=== PATIENT | female | born 1950 | race Caucasian/White ===

== ENCOUNTER → 2016-05-28 | Outpatient (CLI) | payer OTHER ==
[~2016-05-28] MED LIST: COLACE 100 MG100 MG PO; COZAAR 25 MG TA25 M1 PO; CYCLOBENZAPRINE5 MG PO; ELIQUIS5 MG PO; LEVOTHYROXINE 0.1 MG PO; PACERONE 200 M200 M1 PO; PRAVACHOL40 MG PO; PROBIOTIC1 EAC1; SYMBICORT160 MCG/4. INH; TYLENOL325 MG PO; VENTOLIN HFA 1818 GM INH
[2016-05-28 08:30] LABS: HEMATOCRIT 38.9 % (37.0-47.0); HEMOGLOBIN 12.8 gm/dL (12.0-15.0); MCHC 32.8 g/dL (28.0-37.0); MCV 91.6 fL (80.0-100.0); RBC 4.25 mil/uL (4.20-5.00); RDW 13.7 % (10.5-14.5)
[2016-05-28 08:43] LABS: CALCIUM 8.5 mg/dL (8.5-10.1); CREATININE 1.2 mg/dL (0.6-1.3); POTASSIUM 4.3 mmol/L (3.5-5.1)
[2016-05-28 08:48] LABS: ALBUMIN 3.3 g/dL (3.4-5.0); TOTAL BILIRUBIN 0.3 mg/dL (<0.1-1.0); TOTAL PROTEIN 6.6 g/dL (6.4-8.2)
== END ==
LOC: LABMALL 07:47 → CAT 07:47
PROVIDERS: Internal Medicine Cardiovascular Disease
DX: I48.91 Unspecified atrial fibrillation (principal)

== ENCOUNTER 2016-05-29 06:34 | Observation (INO) | payer OTHER ==
[2016-05-29] VITALS (9 sets, daily range): BP systolic 125–143; BP diastolic 65–80
[~2016-05-29] VITALS: Ht 175.3 cm; Wt 107.2 kg
--- NOTE | ~2016-05-29 | P ---
[facility] [place] [address] PROCEDURE REPORT Name: GRANT MELGAR Room #: REG [facility].#: [id number] Admission: 05/29/16 Attend Phys: Jim Stallings MD Discharge: Date of : 52 Report #: [id number] THIS REPORT FOR: //name// CC: Huey Stallings DATE OF SERVICE: 05/29/2016 PREOPERATIVE DIAGNOSIS: Paroxysmal atrial fibrillation. POSTOPERATIVE DIAGNOSIS: Paroxysmal atrial fibrillation. HISTORY: The patient is a 65-year-old female with history of AFib, who has intolerances to amiodarone therapy and is here for an ablation. ANESTHESIA: The patient underwent general anesthesia with no anesthesia related complications. DESCRIPTION OF PROCEDURE: The patient underwent informed consent. We discussed the details of the procedure including the risks, which include but are not limited to bleeding, vascular damage, cardiac perforation as well as stroke or [place]. She understood these risks and willing to proceed. As such, she was brought to the EP laboratory in a fasting and sedated state, prepped and draped in a sterile fashion. Next, I obtained access to the right femoral vein x 3 placing sheaths using the modified Seldinger technique. In the right femoral vein, I placed an 8-Faroese, 9-Faroese and 7-Faroese short sheath. Under fluoroscopic guidance, I placed a decapolar catheter easily in the coronary sinus and an ice catheter into the right atrium. Intracardiac ultrasound verified that there were 2 left to right pulmonary veins. There was a nice thin interatrial septum. The patient was then systemically heparinized and a transseptal was performed along the inferior anterior aspect of the interatrial septum with an SL1 sheath and [place] needle. Once across the SL1 sheath, I exchanged this sheath for the cryo sheath and then placed the cryoballoon into the left atrium. At baseline, the patient was in sinus rhythm with a sinus cycle length of 1120 milliseconds, WA interval 165 milliseconds, QRS 92 milliseconds, QT interval 500 milliseconds. Next, the left superior pulmonary vein was isolated within 30 seconds of the first freeze. The initial freeze was continued for 4 minutes, a second 2-minute freeze was performed. Next, the left inferior pulmonary vein was isolated in 3 freezes. I had some problems with some higher temps in this vein, but the third freeze had very good temperatures and the vein was isolated. Next, I turned my attention to the right superior pulmonary vein and this isolated in 2 freezes. Then, I re-interrogated the left superior, left inferior veins and these remained isolated and then turned my attention to the right [address] [address] PROCEDURE REPORT Name: GRANT MELGAR CLYDE Room #: REG JAMIA Bell#: [id number] Admission: 05/29/16 Attend Phys: Jim Stallings MD Discharge: Date of : 52 Report #: [id number] inferior pulmonary vein. Entering this vein was somewhat challenging, but eventually, I was able to engage it and 2 freezes were performed for 4 minutes. After these 2 freezes, the vein was isolated. During the freezes of the right-sided veins, phrenic nerve pacing was performed from the decapolar catheter placed in the SVC. As such, all 4 pulmonary veins were isolated. The cryo sheath was pulled to the right atrium. Intracardiac ultrasound was used to verify the absence of a pericardial effusion. Next, the patient then received systemic protamine. Catheters and sheaths were pulled. Hemostasis was obtained and the patient awoke neurologically and hemodynamically intact with no complications. Post-ablation, she was in sinus rhythm with sinus cycle length of 890 milliseconds, WA interval 165 milliseconds, QRS duration 90 milliseconds, QT interval 498 milliseconds. CONCLUSIONS: Successful AFib ablation with isolation of the 4 pulmonary veins. By: [id number] Jim Stallings MD /nt
--- NOTE | ~2016-05-29 | D ---
[facility] [place] [address] DISCHARGE SUMMARY Name: GRANT MELGAR Room #: 204-P [facility] M.R.#: [id number] Admission: 05/29/16 Attend Phys: Jim Stallings MD Discharge: Date of : 51 Report #: [id number] THIS REPORT FOR: //name// CC: Huey Stallings DISCHARGE DIAGNOSIS: Atrial fibrillation. PROCEDURES PERFORMED: AFib ablation. The patient is a 65-year-old with history of atrial fibrillation who has failed amiodarone therapy. He is here for an ablation. She underwent successful isolation of the 4 pulmonary veins using the cryoablation and the procedure was straightforward with no complications. HOSPITAL COURSE: She was monitored overnight. Her vitals were stable. Telemetry demonstrated normal sinus rhythm. She had no complaints of inspiratory chest pain which is likely related to the ablation. Her physical exam was normal with normal cardiac and pulmonary exam. Groin showed no hematoma. As such, she was deemed stable for discharge home. Discharge instructions were reviewed and she will continue with her amiodarone and Eliquis therapy for a period of 3 months and follow up with me in my clinic in 3 months. By: [id number] 1022 Jim Stallings MD /nt
[2016-05-29] MEDS ORDERED: LEVOTHYROXINE 0.1 MG PO (07:17)
[2016-05-29] MEDS ORDERED: SYMBICORT160 MCG/4. INH (07:17)
[2016-05-29] MEDS ORDERED: VENTOLIN HFA 1818 GM INH (07:18)
[2016-05-29] MEDS ORDERED: PACERONE 200 M200 M1 PO (07:18)
[2016-05-29] MEDS ORDERED: CYCLOBENZAPRINE5 MG PO (07:18)
[2016-05-29] MEDS ORDERED: PRAVACHOL40 MG PO (07:19)
[2016-05-29] MEDS ORDERED: COZAAR 25 MG TA25 M1 PO (07:19)
[2016-05-29] MEDS ORDERED: ELIQUIS5 MG PO (07:19)
[2016-05-29] MEDS ORDERED: TYLENOL325 MG PO (07:21)
[2016-05-29 07:22] LABS: HEMATOCRIT 37.2 % (37.0-47.0); HEMOGLOBIN 12.6 gm/dL (12.0-15.0); MCH 30.6 pg (26.0-34.0); MCHC 33.8 g/dL (28.0-37.0); MCV 90.7 fL (80.0-100.0); RDW 13.7 % (10.5-14.5); WBC 5.5 thou/uL (4.0-11.0)
[2016-05-29 07:25] LABS: MANUAL DIFF YES
[2016-05-29 07:34] LABS: PROTIME 10.2 Seconds (9.3-11.4)
[2016-05-29 07:40] LABS: CALCIUM 8.6 mg/dL (8.5-10.1); CREATININE 1.1 mg/dL (0.6-1.3); POTASSIUM 3.8 mmol/L (3.5-5.1)
[2016-05-29 07:44] LABS: ALBUMIN 3.4 g/dL (3.4-5.0); TOTAL BILIRUBIN 0.2 mg/dL (<0.1-1.0); TOTAL PROTEIN 6.7 g/dL (6.4-8.2)
[2016-05-29 08:52] LABS: ABSOLUTE NEUTROPHILS 2.2 thou/uL (1.4-8.2); PLATELET COUNT 261 thou/uL (150-400); PLATELET ESTIMATE NORMAL; TOTAL CELL COUNT 100
[2016-05-29 08:53] LABS: LARGE PLATELETS FEW
[2016-05-30 03:51] VITALS: BP 108/60
[2016-05-30 07:20] VITALS: BP 118/64
[2016-05-30 09:37] VITALS: BP 118/64
[2016-05-30 09:39] VITALS: BP 118/64
== END 2016-05-30 10:50 | disposition home or self-care (01) ==
LOC: CATH → 2N 15:05
PROVIDERS: Internal Medicine Cardiovascular Disease
DX: I48.0 Paroxysmal atrial fibrillation (principal)
CPT/HCPCS: 62110; 70005

== ENCOUNTER 2016-06-01 00:08 | Inpatient (IN) | payer OTHER ==
[2016-06-01] VITALS (7 sets, daily range): BP systolic 114–162; BP diastolic 57–78
[~2016-06-01] VITALS: Ht 175.3 cm; Wt 84.2 kg
--- NOTE | ~2016-06-01 | EKG ---
[place] [address] [facility] [employer] [address] ELECTROCARDIOGRAM REPORT Name: GRANT MELGAR Room #: 207- ADM IN M.R.#: [id number] Admission: 06/01/16 Attend Phys: Gil Cole MD Discharge: Date of : 51 Report #: [id number] THIS REPORT FOR: //name// [facility] Test Date: 2016-06-03 Test Time: 03:42:08 Pat Name: GRANT MELGAR Department: Room: 207 Gender: F Post Partum Nurse: . : 1950 Requested By: Birdie Mccray Order Number: [id number] MD: Deion Harper Measurements Intervals [place] Rate: 70 P: 46 OK: 166 QRS: -3 QRSD: 103 T: 59 QT: 441 QTc: 476 Interpretive Statements Sinus rhythm Left ventricular hypertrophy Compared to ECG 06/01/2016 00:16:51 Left ventricular hypertrophy now present T-wave abnormality no longer present Electronically Signed On 06-04-2016 7:44:09 CDT by Deion Harper [email or web address] <ELECTRONICALLY SIGNED> By: Deion Harper MD, [facility] 06/04/16 0744 0342 0342 Deion Harper MD, [facility] /EPI
--- NOTE | ~2016-06-01 | HC ---
[facility] [place] [address] CONSULTATION Name: GRANT MELGAR Room #: 207-P ADM IN M.R.#: [id number] Admission: 06/01/16 Attend Phys: Gil Cole MD Discharge: Date of : 51 Report #: [id number] THIS REPORT FOR: //name// CC: Huey Mott MD [facility] GRACE Cole DATE OF SERVICE: 06/02/2016 ATTENDING PHYSICIAN: Dr. Cisse. REASON FOR CONSULTATION: Low-grade fever. HISTORY OF PRESENT ILLNESS: The patient is a 65-year-old white woman who has history of recurrent atrial fibrillation for a number of years, who has elected not to be on amiodarone and who underwent ablation for atrial fibrillation on 05/29/[address] Grace Stallings. The patient was discharged home where she goes on developing some chest pain and she is readmitted in June 01 complaining of some chest pain rather severe, 10/10, worsened by deep inspiration. Her workup has included echocardiogram that was essentially negative for pericardial effusion. A CT scan of the chest that revealed bibasilar atelectasis. No pericardial effusion. Chest x-ray has revealed atelectasis and possibly colonic distention under the right diaphragm. At present, the patient is feeling better, still having some chest discomfort, did have low grade fever yesterday and on account of this ID opinion was requested. PAST MEDICAL HISTORY: Bronchial asthma, status post partial thyroidectomy for goiter, diagnosed to have Shankar's disease, dyslipidemia. Atrial flutter/fibrillation. Hysterectomy and oophorectomy. Tonsillectomy and adenoidectomy at a young age. Left wrist surgery. Dickey's neuroma, foot. SOCIAL HISTORY: , many children and grandchildren, none of them with febrile illness. DRUG ALLERGIES: PENICILLIN, CODEINE, SOLU-MEDROL, and FLUTICASONE. MEDICATIONS: She is currently on ibuprofen 800 mg t.i.d. as well as colchicine 0.6 mg b.i.d. and she believes these had made some difference as far as her chest pain is concerned. Also, on treatment with supplemental magnesium and potassium per protocol, Lactobacillus acidophilus 1 tablet daily, apixaban 5 mg b.i.d., losartan 5 mg daily, amiodarone 200 mg b.i.d., levothyroxine 100 mcg daily, pantoprazole 40 mg daily, Atrovent and albuterol inhalation treatment, p.r.n. , cyclobenzaprine, nitroglycerin as well as ondansetron, and [facility] [address] [place] [address] CONSULTATION Name: GRANT MELGAR Room #: 207-P [facility] IN M.R.#: [id number] Admission: 06/01/16 Attend Phys: Gil Cole MD Discharge: Date of : 52 Report #: [id number] morphine sulfate. REVIEW OF SYSTEMS: Essentially noncontributory besides some shortness of breath and chest pain worsened by deep breathing, which is improved. PHYSICAL EXAMINATION: GENERAL: A well-developed woman, not toxic looking, in no distress. FOLLOWING VITAL SIGNS: Temperature maximum 100.5 on 06/01/2016 at 1920 hours. Today's temperature 98.5, pulse 112, respirations 18, BP 131/75. HEENMT: Pupils reactive. Conjunctivae normal. Mouth: No thrush. NECK: Supple, no thyromegaly. A scar from previous partial thyroidectomy. LUNGS: Clear. HEART: S1, S2. No gallop, murmur or pericardial friction rub. ABDOMEN: Soft, no masses or megaly. PELVIC AND RECTAL: Deferred. EXTREMITIES: Normal. NEUROLOGIC: Grossly within normal limits. LABORATORY DATA: Revealed the following abnormals. On admission, the AST-SGOT was 179 U/L, now down to 47, SGPT 275 IU/L and now 107, bilirubin and alkaline phosphatase, essentially within range, mild hypoalbuminemia of 3.2 g/dL detected yesterday. The troponin was mildly elevated at 2 on admission. NT-proBNP 773, there is mild elevation of CRP of 15 mg/L. CBC on May 28 and normal, elevated at 11.1 on June 01, and the hemoglobin is 12.3 g/dL and platelets 257,000. The white blood cell count revealed 67% neutrophils, 20% lymphocytes, 10% monocytes. The ESR only 24 mm per hour. RADIOLOGY EVALUATION: On May 28, CT chest for evaluation of pulmonary vessels revealed left atrium and left atrial appendage with good opacification. No evidence of thrombus. A chest x-ray obtained on June 01 revealed bibasilar atelectasis as well as possibly a colonic interposition between the diaphragm and liver. The CT chest revealed bilateral lower lobe atelectasis versus pneumonitis, no obvious cardiac complication and sludge in the gallbladder. There is a large amount of food in the stomach as well. ASSESSMENT: 1. Chest pain, possibly pleuritic in nature, questionable secondary to cardiac ablation. 2. Abnormal liver enzymes, undetermined etiology. 3. Gallbladder sludge. 4. Question superimposition of colon between liver and diaphragm. 5. Mildly abnormal liver function test. 6. Mild elevation of CRP and sed rate. Suggestion: At present, this patient obviously not toxic and infected looking, but I have no clear cut explanation as to why liver enzymes were elevated and obviously they are getting better now, she does have sludge in the gallbladder, so there has to be some degree of [facility] [address] [place] [address] CONSULTATION Name: GRANT MELGAR Room #: 207-P ADM IN M.R.#: [id number] Admission: 06/01/16 Attend Phys: Gil Cole MD Discharge: Date of : 51 Report #: [id number] gallbladder dysfunction. 7. History of goiter - Shankar's thyroiditis, status post partial thyroidectomy. 8. Dyslipidemia. SUGGESTIONS: Recommend repeat liver function tests, ESR, CRP, CBC, obtain sonogram of the gallbladder. I have not initiated antibiotic at present time. Continue ibuprofen and colchicine for possible pericarditis. Dr. Grace Stallings, thank you for requesting my suggestions in the care of your patient. <ELECTRONICALLY SIGNED> By: Abdelrahman Stallings MD 06/03/16 1121 1124 2149 Abdelrahman Stallings MD /nt
--- NOTE | ~2016-06-01 | EKG ---
[address] [place] [address] ELECTROCARDIOGRAM REPORT Name: GRANT MELGAR Room #: 207-P ADM IN M.R.#: [id number] Admission: 06/01/16 Attend Phys: Tristen Cisse MD Discharge: Date of : 51 Report #: [id number] THIS REPORT FOR: //name// [facility] ED Test Date: 2016-06-01 Test Time: 00:16:51 Pat Name: GRANT MELGAR Department: Room: 207 Gender: F Supervisor [employer] Placing: [id number] : 1950 Requested By: Jaylen Mcgarry Order Number: [id number] MD: Deion Harper Measurements Intervals [place] Rate: 71 P: 52 MA: 168 QRS: 5 QRSD: 106 T: 66 QT: 419 QTc: 456 Interpretive Statements Sinus rhythm Borderline T abnormalities No previous ECG available for comparison Electronically Signed On 06-01-2016 7:46:06 CDT by Deion Harper [email or web address] <ELECTRONICALLY SIGNED> By: Deion Harper MD, [facility] 06/01/16 0746 0016 0016 Deion Harper MD, FACC /EPI
--- NOTE | ~2016-06-01 | 2DMMODE ---
[facility] [email or web address] [facility] [place] [address] 2 D/M-MODE ECHOCARDIOGRAM Name: GRANT MELGAR CLYDE Room #: 207-P ADM IN M.R.#: [id number] Admission: 06/01/16 Attend Phys: Sara Friend Discharge: Date of : 52 Date of Service: 06/01/16 1532 Report #: [id number] THIS REPORT FOR: //name// APPROVED REPORT Study performed: 06/01/2016 09:30:46 EXAM: Comprehensive 2D, Doppler, and color-flow Echocardiogram Patient Location: Bedside/Room 207 Blood Pressure: 143/69 mmHg HR: 85 bpm Rhythm: NSR Other Information Study Quality: Adequate Indications Chest pain, elevated troponin, elevated BNP. Hx: S/P ablation for PAF on 05/29/2016 2D Dimensions RVDd: 37.18 mm LVEF(%): 68.39 (>50%) IVSd: 9.20 (7-11mm) LVOT Diam: 21.71 (18-24mm) LVDd: 53.76 mm PWd: 9.73 (7-11mm) Ascending Aorta: 38.94 mm LVDs: 33.02 (25-40mm) Aortic Root: 37.16 mm Vicente's LVEF: 68.39 % Volumes Left Atrial Volume (Systole) Single Plane 4CH: 77.79 mL Single Plane 2CH: 78.51 mL Aortic Valve AoV Peak Gab.: 1.31 m/s AI PHT: 571.32 ms AO Peak Gr.: 6.90 mmHg LV Max P.61 mmHg LV Max: 1.07 m/s AI Vmax: 3.44 m/s AI Tucker: 1.75 m/s2 Mitral Valve MV PHT: 55.20 ms [facility] [place] [address] 2 D/M-MODE ECHOCARDIOGRAM Name: GRANT MELGAR [facility] Room #: 207-P ADM IN M.R.#: [id number] Admission: 06/01/16 Attend Phys: Sara Friend Discharge: Date of : 52 Date of Service: 06/01/16 1532 Report #: [id number] MV E Max Gab.: 1.00 m/s E/A Ratio: 1.2 MV A Gab.: 0.85 m/s MV Decel. Time: 190.36 ms Pulmonary Valve PV Peak Gab.: 1.26 m/s PV Peak Gr.: 6.31 mmHg Tricuspid Valve TR Peak Gab.: 2.42 m/s RAP Estimate: 5.00 mmHg TR Peak Gr.: 23.52 mmHg RVSP: 29.00 mmHg Left Ventricle The left ventricle is normal size. There is normal LV segmental wall motion. There is normal left ventricular wall thickness. The left ventricular systolic function is normal. LVEF is 60%. Grade II - pseudonormal filling dynamics. Right Ventricle The right ventricle is normal size. The right ventricular systolic function is normal. Atria Left atrium is mild to moderately dilated. The right atrium size is normal. Aortic Valve The Aortic valve is mildly sclerotic. Mild aortic regurgitation. There is no aortic valvular stenosis. Mitral Valve Mitral valve leaflets are mildly thickened. Mild mitral regurgitation. There is no mitral valve stenosis. Tricuspid Valve The tricuspid valve is normal in structure. There is mild tricuspid regurgitation. The right atrial pressure is estimated at 5 mmHg. Estimated PAP of 29mmHg. Pulmonic Valve The pulmonary valve is normal in structure. Trace pulmonic regurgitation. Great Vessels The aortic root is normal in size. The ascending aorta is mildly dilated. IVC is normal in size and collapses >50% with inspiration. [facility] [address] [place] [place] [address] 2 D/M-MODE ECHOCARDIOGRAM Name: GRANT MELGAR Room #: 207-P ADM IN [facility].#: [id number] Admission: 06/01/16 Attend Phys: Sara Friend Discharge: Date of : 52 Date of Service: 06/01/16 1532 Report #: [id number] Pericardium There is no pericardial effusion. <Conclusion> LVEF is 60%. There is normal LV segmental wall motion. Left atrium is mild to moderately dilated. Mild aortic regurgitation. There is no aortic valvular stenosis. Mild mitral regurgitation. There is mild tricuspid regurgitation. The right atrial pressure is estimated at 5 mmHg. Estimated PAP of 29mmHg. There is no pericardial effusion. <ELECTRONICALLY SIGNED> By: Chadwick Cortez MD, FACC 06/01/16 1532 153 [id number] Chadwick Cortez MD, FACC /INF
[~2016-06-01 00:08] MED LIST changes: -COLACE 100 MG100 MG PO; -PROBIOTIC1 EAC1
[2016-06-01] MEDS ORDERED: PROBIOTIC1 EAC1 (00:15)
[2016-06-01] MEDS ORDERED: COLACE 100 MG100 MG PO (00:15)
[2016-06-01 00:57] LABS: HEMATOCRIT 36.6 % (37.0-47.0); HEMOGLOBIN 12.3 gm/dL (12.0-15.0); MCH 30.4 pg (26.0-34.0); MCHC 33.5 g/dL (28.0-37.0); MCV 90.7 fL (80.0-100.0); PLATELET COUNT 257 thou/uL (150-400); RBC 4.04 mil/uL (4.20-5.00); RDW 13.8 % (10.5-14.5); WBC 11.1 thou/uL (4.0-11.0)
[2016-06-01 01:01] LABS: MANUAL DIFF YES
[2016-06-01 01:11] LABS: PROTIME 10.1 Seconds (9.3-11.4)
[2016-06-01 01:19] LABS: ABSOLUTE NEUTROPHILS 7.4 thou/uL (1.4-8.2); LARGE PLATELETS RARE; TOTAL CELL COUNT 100
[2016-06-01 01:26] LABS: ALBUMIN 3.2 g/dL (3.4-5.0); CALCIUM 8.5 mg/dL (8.5-10.1); CK-MB MASS 1.8 ng/mL (<0.5-3.6); CREATININE 1.2 mg/dL (0.6-1.3); MAGNESIUM 1.7 mg/dL (1.8-2.4); TOTAL BILIRUBIN 0.4 mg/dL (<0.1-1.0); TOTAL PROTEIN 6.7 g/dL (6.4-8.2)
[2016-06-01 01:29] LABS: TROPONIN-I 2.09 ng/mL (<0.04-0.07)
[2016-06-01 07:18] LABS: CHOLESTEROL 165 mg/dL (<200); HDL CHOLESTEROL 67 mg/dL (>40); TC:HDL 2.5 Ratio (Not establshd); TROPONIN-I 0.08 ng/mL (<0.04-0.07)
[2016-06-01 07:31] LABS: LDL CHOLESTEROL 92 mg/dL (<100); TRIGLYCERIDE 34 mg/dL (<150); VLDL 7 mg/dL (<40)
[2016-06-02] VITALS (8 sets, daily range): BP systolic 112–147; BP diastolic 69–86
[2016-06-03] VITALS (12 sets, daily range): BP systolic 66–120; BP diastolic 39–72
[2016-06-03 04:19] LABS: HEMATOCRIT 40.4 % (37.0-47.0); HEMOGLOBIN 13.3 gm/dL (12.0-15.0); MCH 30.4 pg (26.0-34.0); MCV 92.3 fL (80.0-100.0); PLATELET COUNT 299 thou/uL (150-400); RBC 4.38 mil/uL (4.20-5.00); RDW 14.4 % (10.5-14.5); WBC 16.5 thou/uL (4.0-11.0)
[2016-06-03 04:21] LABS: MANUAL DIFF YES
[2016-06-03 04:27] LABS: CALCIUM 8.5 mg/dL (8.5-10.1); CREATININE 1.3 mg/dL (0.6-1.0); POTASSIUM 4.4 mmol/L (3.5-5.1)
[2016-06-03 04:31] LABS: ALBUMIN 3.2 g/dL (3.4-5.0); TOTAL BILIRUBIN 0.6 mg/dL (<0.1-1.0); TOTAL PROTEIN 6.1 g/dL (6.4-8.2)
[2016-06-03 06:43] LABS: ANISOCYTOSIS SLIGHT; METAMYELOCYTES 1 %; TOTAL CELL COUNT 100
[2016-06-04 00:39] VITALS: BP 114/58
[2016-06-04 03:43] VITALS: BP 93/52
[2016-06-04 06:06] LABS: HEMATOCRIT 35.5 % (37.0-47.0); HEMOGLOBIN 11.9 gm/dL (12.0-15.0); MCH 30.6 pg (26.0-34.0); MCHC 33.5 g/dL (28.0-37.0); MCV 91.3 fL (80.0-100.0); RBC 3.88 mil/uL (4.20-5.00); RDW 14.2 % (10.5-14.5)
[2016-06-04 06:17] LABS: CREATININE 1.1 mg/dL (0.6-1.0); POTASSIUM 3.9 mmol/L (3.5-5.1)
[2016-06-04 07:50] VITALS: BP 102/62
[2016-06-04 08:31] VITALS: BP 102/62
[2016-06-04 11:09] VITALS: BP 104/65
[2016-06-04 20:32] VITALS: BP 114/61
[2016-06-05 03:41] VITALS: BP 105/67
[2016-06-05 04:39] LABS: CALCIUM 8.6 mg/dL (8.5-10.1); CREATININE 1.1 mg/dL (0.6-1.0); POTASSIUM 4.4 mmol/L (3.5-5.1)
[2016-06-05 05:30] LABS: HEMOGLOBIN 12.1 gm/dL (12.0-15.0); MCH 30.8 pg (26.0-34.0); MCHC 33.5 g/dL (28.0-37.0); MCV 91.8 fL (80.0-100.0); RBC 3.92 mil/uL (4.20-5.00); RDW 13.6 % (10.5-14.5); WBC 6.2 thou/uL (4.0-11.0)
[2016-06-05 07:50] VITALS: BP 145/82
[2016-06-05 08:40] VITALS: BP 125/80
[2016-06-05 11:40] VITALS: BP 132/75
[2016-06-05 14:27] VITALS: BP 125/80
[2016-06-05 14:34] VITALS: BP 125/80
== END 2016-06-05 15:12 | disposition home or self-care (01) | DRG 314 ==
LOC: ER 00:08 → EROBS 01:03 → 2N 01:03
PROVIDERS: Emergency Medicine; Family Medicine; Internal Medicine Infectious Disease; Nurse Practitioner Acute Care
DX: I30.9 Acute pericarditis, unspecified (principal); J69.0 Pneumonitis due to inhalation of food and vomit; A04.7 Enterocolitis due to Clostridium difficile; E44.1 Mild protein-calorie malnutrition; I48.92 Unspecified atrial flutter; J45.909 Unspecified asthma, uncomplicated; E83.42 Hypomagnesemia; I48.91 Unspecified atrial fibrillation; E06.3 Autoimmune thyroiditis; E89.0 Postprocedural hypothyroidism; Z68.27 Body mass index [BMI] 27.0-27.9, adult; Z79.01 Long term (current) use of anticoagulants; Z79.899 Other long term (current) drug therapy; Z90.710 Acquired absence of both cervix and uterus; Z90.721 Acquired absence of ovaries, unilateral; Z90.49 Acquired absence of other specified parts of digestive tract; Z88.0 Allergy status to penicillin; Z88.8 Allergy status to other drugs, medicaments and biological substances
CPT/HCPCS: 10081; 62110; 70005

== ENCOUNTER 2017-08-11 06:33 | Observation (INO) | payer OTHER ==
[~2017-08-11] VITALS: Ht 172.7 cm; Wt 90.1 kg
--- NOTE | ~2017-08-11 | P ---
[facility] [place] [address] PROCEDURE REPORT Name: GRANT MELGAR Room #: 207-P [facility] M.R.#: [id number] Admission: 08/11/17 Attend Phys: Jim Stallings MD Discharge: 08/12/17 Date of : 52 Report #: [id number] THIS REPORT FOR: //name// CC: Huey Stallings PREOPERATIVE DIAGNOSIS: Paroxysmal atrial fibrillation. POSTOPERATIVE DIAGNOSIS: Paroxysmal atrial fibrillation. HISTORY: The patient is a 66-year-old female with history of paroxysmal atrial fibrillation, status post ablation in April 2016 who has had clinical recurrence and is here for repeat ablation. ANESTHESIA: The patient underwent general anesthesia with no anesthesia related complications. DESCRIPTION OF PROCEDURE: The patient underwent informed consent. We discussed the details of the procedure including the risks, which include but not limited to bleeding, infection, vascular damage, cardiac perforation as well as stroke or [place]. She understood these risks and is willing to proceed. As such, the patient was brought to the EP laboratory in a fasting and unsedated state and prepped and draped in a sterile fashion. At baseline, the patient was in sinus rhythm with sinus cycle length of 950 milliseconds, DC interval 150 milliseconds, QRS duration 90 milliseconds. Next, I obtained access to the right and left femoral veins x 2. I placed two 8-Czech sheaths in the right femoral vein and a 7-Czech and 9-Czech short sheath in the left femoral vein using the modified Seldinger technique. Next, under fluoroscopy, I placed a decapolar catheter easily in the coronary sinus and an ICE catheter in the right atrium. Using [employer] I created a 3D geometry of the left atrium with visualization of the left atrial appendage, the 2 left and 2 right pulmonary veins. This was merged with the prior cardiac CT scan. Next, the patient was systemically heparinized and I performed 2 separate transseptals using an SL1 sheath and a [place] needle. I then placed the Lasso catheter and ablation catheter into the left atrium. At baseline, the patient had persistent isolation of the left superior pulmonary vein. The left inferior pulmonary vein, right superior pulmonary vein and the right inferior pulmonary vein were all reconnected. I therefore first isolated the left inferior pulmonary vein, which required approximately 30-60 seconds of ablation along the anterior mariaelena with re-isolation. I then turned my attention to the right superior pulmonary vein. This vein had large double potentials and ablation was performed along the anterior mariaelena, which resulted in isolation of the vein. There was one short potential that remained that I attempted to ablate, however, this would not capture even pacing from the Lasso at 20 millivolts. Therefore, I thought this was some sort of a far field potential or may be a potential arising from [facility] [address] [place] [address] PROCEDURE REPORT Name: GRANT MELGAR Room #: 207-P [facility] Gladis MRdRRd#: [id number] Admission: 08/11/17 Attend Phys: Jim Stallings MD Discharge: 08/12/17 Date of : 52 Report #: [id number] the SVC, but clearly this did not capture and the vein activity was much improved compared to prior to ablation. I then turned my attention to the right inferior pulmonary vein. This vein was somewhat challenging. I had difficulty on my first ablation even getting the cryoablation balloon into this vessel. She does have quite a rotated heart, which is evidenced while trying to do a transseptal. This vein is also more rotated and normal. This vein was reconnected along the anterior aspect of the vein from the mariaelena all the way down to the floor of the right atrium. Initially ablation was performed along the mariaelena anteriorly and getting contact in this area was somewhat difficult. As I continued to ablate and got to the lower aspect of the vein, there was transient isolation of the vein, but it reconnected after about 1 minute. I then continued to ablate along the inferior aspect of the vein at an anterior location. This did not result in termination of conduction. I therefore went slightly higher and I found a nice spot along the superior aspect of the vein in an anterior location and ablation at this site. I had nice large fractionated signals and ablation at this site resulted in isolation of the vessel. Given how difficult this vein was isolated, I gave 6 of adenosine and there was no reconnection of the vessel. I did perform extensive ablation in this area to ensure that it would not reconnect. As such, I re-interrogated the veins. They were isolated and as such, the procedure was concluded. The patient did have an episode of transient atrial flutter while I was ablating in the right superior pulmonary vein and interestingly this did terminate while working on this vessel. There was no more atrial flutter after isolation of the veins. As such, the procedure was concluded. All catheters and sheaths were pulled to the right atrium. I used intracardiac ultrasound to verify that there was no pericardial effusion. Protamine was administered and once the ACT was within acceptable range, catheters and sheaths were pulled and hemostasis was obtained. The patient awoke neurologically hemodynamically intact. No complications and no significant bleeding. CONCLUSIONS: 1. Successful AFib ablation. 2. Successful re-isolation of the left inferior, right superior and right inferior pulmonary veins. 3. Persistent isolation of the left superior pulmonary vein. 4. No reconnection of the veins after administration of IV adenosine. <ELECTRONICALLY SIGNED> By: Jim Stallings MD 08/12/17 1425 1306 2343 Jim Stallings MD /nt
--- NOTE | ~2017-08-11 | D ---
[facility] [address] DISCHARGE SUMMARY Name: GRANT MELGAR Room #: 207-P [facility] M.R.#: [id number] Admission: 08/11/17 Attend Phys: Jim Stallings MD Discharge: 08/12/17 Date of : 52 Report #: [id number] THIS REPORT FOR: //name// CC: Huey Stallings DISCHARGE DIAGNOSIS: Atrial fibrillation. PROCEDURE PERFORMED: AFib ablation. HISTORY: The patient is a 66-year-old with history of paroxysmal AFib, status post ablation back in 04/2016 who has had clinical recurrence of her arrhythmia and is here for redo ablation. She underwent a repeat ablation today where she was noted to have reconnection of the left inferior, right superior and right inferior pulmonary veins. The left superior remained isolated. These 3 veins were re-isolated without complications. HOSPITAL COURSE: The patient was monitored in the CCU overnight. She did well without any issues. She denied any chest pain, shortness of breath, PND, orthopnea. She has some mild inspiratory chest discomfort which is not unusual for this procedure. PHYSICAL EXAMINATION: HEART: Regular rate and rhythm with no murmurs, rubs, gallops. LUNGS: Clear to auscultation bilaterally. ABDOMEN: Soft, nontender and her bilateral groins showed no hematoma or bruising. Telemetry revealed sinus rhythm with no atrial fibrillation. As such, she was deemed stable for discharge home. Discharge instructions were reviewed and she will continue on her current anticoagulation regimen. We will initiate flecainide therapy 100 mg b.i.d. for a period of 3 months. She will follow up with me in my clinic in 3 months. <ELECTRONICALLY SIGNED> By: Jim Stallings MD 08/12/17 1425 0816 [id number] Jim Stallings MD /nt
[~2017-08-11 06:33] MED LIST changes: +COLACE 100 MG100 MG PO; +PROBIOTIC1 EAC1
[2017-08-11] MEDS ORDERED: XARELTO20 MG PO (06:54)
[2017-08-11] MEDS ORDERED: NEPHROCAPS SOFT1 CAP PO (06:55)
[2017-08-11] MEDS ORDERED: MULTIVITAMINS1 EAC7 PO (06:55)
[2017-08-11] MEDS ORDERED: ALENDRONATE SOD70 MG PO (06:55)
[2017-08-11] MEDS ORDERED: COQ-10100 MG PO (06:55)
[2017-08-11] MEDS ORDERED: IBUPROFEN 800800 M1 PO (06:56)
[2017-08-11 07:13] VITALS: BP 128/71
[2017-08-11 07:18] LABS: CALCIUM 8.9 mg/dL (8.5-10.1); CREATININE 0.9 mg/dL (0.6-1.0); POTASSIUM 4.5 mmol/L (3.5-5.1)
[2017-08-11 07:21] LABS: APTT 32.1 Seconds (24.5-32.8); PROTIME 10.1 Seconds (9.3-11.4)
[2017-08-11 08:00] LABS: ABSOLUTE NEUTROPHILS 3.2 thou/uL (1.4-8.2); BASOPHILS 0.6 % (0.0-2.0); EOSINOPHILS 2.8 % (0.0-3.0); HEMATOCRIT 38.8 % (37.0-47.0); HEMOGLOBIN 12.9 gm/dL (12.0-15.0); LYMPHOCYTES 36.4 % (24.0-44.0); MCH 29.8 pg (26.0-34.0); MCHC 33.2 g/dL (28.0-37.0); MCV 89.8 fL (80.0-100.0); MONOCYTES 11.9 % (1.0-8.0); PLATELET COUNT 251 thou/uL (150-400); POLYS 48.3 % (36.0-66.0); RBC 4.32 mil/uL (4.20-5.00); RDW 13.2 % (10.5-14.5); WBC 6.6 thou/uL (4.0-11.0)
[2017-08-11 19:57] VITALS: BP 122/55
[2017-08-12 04:47] VITALS: BP 119/52
[2017-08-12 06:52] VITALS: BP 117/55
[2017-08-12] MEDS ORDERED: TAMBOCOR 100 M100 M1 PO (08:12)
[2017-08-12 09:59] VITALS: BP 117/55
== END 2017-08-12 10:29 | disposition home or self-care (01) ==
LOC: CATH 06:33 → 2N 15:04 → ENTRNSPT 08-12 10:21 → EDTRNSPTSTS 08-12 10:25 → 2N 08-12 10:29
PROVIDERS: Internal Medicine Cardiovascular Disease
DX: I48.0 Paroxysmal atrial fibrillation (principal); J45.909 Unspecified asthma, uncomplicated; I48.92 Unspecified atrial flutter; I42.9 Cardiomyopathy, unspecified; E06.3 Autoimmune thyroiditis; R00.0 Tachycardia, unspecified; E03.9 Hypothyroidism, unspecified; E78.5 Hyperlipidemia, unspecified; Z98.890 Other specified postprocedural states; Z90.89 Acquired absence of other organs; Z90.710 Acquired absence of both cervix and uterus; Z72.89 Other problems related to lifestyle
CPT/HCPCS: 62110; 62900; 65020; 65040; 65043; 70005